=== PATIENT | female | born 1995 | race Caucasian/White ===

== ENCOUNTER 2016-11-10 12:54 | Emergency (ER) | payer BC, OTHER ==
[~2016-11-10] VITALS: Ht 154.9 cm; Wt 54.4 kg
[2016-11-10] MEDS ORDERED: ADDERALL 30 MG30 MG PO (13:04)
[2016-11-10 14:03] LABS: URINE BLOOD TRACE (Negative); URINE COLOR YELLOW; URINE GLUCOSE-RANDOM* NEGATIVE (Negative); URINE KETONES TRACE (Negative); URINE LEUKOCYTES-REFLEX NEGATIVE (Negative); URINE PROTEIN (DIPSTICK) 2+ (Negative); URINE SPECIFIC GRAVITY >= 1.030 (1.003-1.035)
[2016-11-10 14:05] LABS: HEMATOCRIT 42.5 % (37.0-47.0); HEMOGLOBIN 15.3 gm/dL (12.0-15.0); MCH 33.4 pg (26.0-34.0); MCHC 35.9 g/dL (28.0-37.0); MCV 92.9 fL (80.0-100.0); PLATELET COUNT 153 thou/uL (150-400); RBC 4.58 mil/uL (4.20-5.00); RDW 12.6 % (10.5-14.5); WBC 6.5 thou/uL (4.0-11.0)
[2016-11-10 14:07] LABS: ICTOTEST (BILI CONFIRMATORY) Negative (Negative); URINE BILIRUBIN NEGATIVE (Negative)
[2016-11-10 14:09] LABS: CREATININE 0.8 mg/dL (0.6-1.0); POTASSIUM 3.2 mmol/L (3.5-5.1)
[2016-11-10 14:10] LABS: MANUAL DIFF YES
[2016-11-10 14:15] LABS: ALBUMIN 3.4 g/dL (3.4-5.0); TOTAL BILIRUBIN 0.6 mg/dL (<0.1-1.0); TOTAL PROTEIN 7.5 g/dL (6.4-8.2)
[2016-11-10 14:22] LABS: CASTS None Seen /LPF (None Seen); CRYSTALS None Seen /LPF (None Seen); SQUAMOUS >10 Many /LPF (0-3)
[2016-11-10 14:23] LABS: URINE RBC 0-2 Rare /HPF (0-2); URINE WBC-REFLEX 0-5 Rare /HPF (0-5)
[2016-11-10 15:10] LABS: ANISOCYTOSIS 1+; TOTAL CELL COUNT 100
[2016-11-10 15:19] VITALS: BP 109/70
[2016-11-10] MEDS ORDERED: DOXYCYCLINE 10100 MG PO (15:41)
[2016-11-10] MEDS ORDERED: TESSALON PERLE100 MG PO (15:43)
[2016-11-10] MEDS ORDERED: ZOFRAN ODT8 MG PO (15:51)
== END 2016-11-10 16:10 | disposition home or self-care (01) ==
LOC: ER 12:54
PROVIDERS: Physician Assistant
DX: J18.9 Pneumonia, unspecified organism (principal); F90.9 Attention-deficit hyperactivity disorder, unspecified type